=== PATIENT | male | born 1945 | race Caucasian/White ===

== ENCOUNTER 2023-10-14 14:25 | Inpatient (IN) | payer MEDICARE, SELFPAY ==
[2023-10-14] VITALS (13 sets, daily range): BP systolic 128–209; BP diastolic 66–98; BMI 27.2; BMI 26.9
[2023-10-14 08:48] LABS: % Basophils 0.7 % (0-2); % Eosinophils 4.7 % (0-6); % Immature Granulocytes 0.4 % (0-0.5); % Lymphocytes 12.6 % (20.5-51.1); % Monocytes 15.8 % (1.7-9.3); % Neutrophils 65.8 % (42.2-75.2); Absolute Basophils 0.1 10^3/uL (0-0.2); Absolute Eosinophils 0.4 10^3/uL (0-0.7); Absolute Monocytes 1.2 10^3/uL (0.1-0.6); Absolute Neutrophils 5.1 10^3/uL (1.4-6.5); Hematocrit 35.7 % (39.0-52.0); Mean Corp Hgb Conc. 33.6 g/dL (33.0-37.0); Mean Corpuscular Hgb 30.7 pg (27.0-31.0); Mean Corpuscular Volume 91.3 fL (80.0-94.0); Mean Platelet Volume 10.3 fL (7.4-10.4); Nucleated Red Blood Cells % 0 % (-); Platelet Count 199 10^3/uL (130-400); Red Blood Cell Count 3.91 10^6/uL (4.70-6.10); Red Cell Dist. Width 12.7 % (11.5-14.5); White Blood Cell Count 7.7 10^3/uL (4.8-10.8)
[2023-10-14 09:51] LABS: ALT (SGPT) 15 U/L (0-50); AST (SGOT) 24 U/L (17-59); Albumin 3.9 g/dl (3.5-5.0); Alkaline Phosphatase 96 U/L (38-126); Blood Urea Nitrogen 33 mg/dl (9-20); Carbon Dioxide 24 mmol/L (22-30); Chloride 107 mmol/L (98-107); Glucose 122 mg/dl (70-99); Lipase 105 U/L (23-300); Potassium 5.4 mmol/L (3.5-5.1); Sodium 135 mmol/L (135-145); Total Bilirubin 0.5 mg/dl (0.2-1.3); Total Protein 6.7 g/dl (6.3-8.2); eGFR 24.32
--- NOTE | 2023-10-14 10:35 | ED.GENMED ---
History of Present Illness
<Mojgan Solorzano, BRIMMING MACHINE OPERATOR - Last Filed: 10/16/23 20:17>
General
Chief Complaint: Abdominal Pain
Source: patient
Exam Limitations: none
Time Seen by Provider: 10/14/23 10:24
Nursing documentation reviewed up to this point in time: agreed with
Travel History
Have you had any contact with someone who has COVID-19?: No
Do you have any symptoms of coronavirus? Fever > 100 degrees, chills, cough, shortness of breath, sore throat, loss of taste or smell, muscle aches, or headache?: No
History of Present Illness
History of Present Illness:
78-year-old male with history of HTN, HLD, NIDDM, prostate cancer with a radical prostatectomy 2008 presents stating 5 days ago he developed sudden severe right upper quadrant pain which kept him in bed for a whole day. He thought it was due to his
being constipated so in the past 4 days he has taken suppositories twice, fleets enema once with no relief, then in the past 2 days he has taken Dulcolax orally twice and has had watery stools yesterday and today. He denies fever or chills. Denies
nausea or vomiting. He does say he feels distended but states at this moment he has no abdominal pain.
Past History
<Mojgan Solorzano, BRIMMING MACHINE OPERATOR - Last Filed: 10/16/23 20:17>
Past History
ED Past Medical History: Cancer (Prostate), HTN and NIDDM
ED Past Surgical History: None and Urological (radical prostatectomy 2008)
Social History
Tobacco: Non-smoker
Alcohol: Occasional
Personal:
Living: with family
Employment: Retired
Review of Systems
<Mojgan Solorzano, BRIMMING MACHINE OPERATOR - Last Filed: 10/16/23 20:17>
Review of Systems
Allergies reviewed?: Yes
All Other Systems: ROS reviewed and negative except as documented in HPI and ROS
Constitutional: Denies fever or chills
Respiratory: Denies trouble breathing
Cardiac: Denies chest pain
ABD/GI: Reports abdominal pain (Feels bloated), diarrhea (watery stools past 2 days.) and constipated; Denies nausea, vomiting, bloody stools, black stools or anorexia
: Denies dysuria, difficulty voiding or urgency
Musculoskeletal: Reports no symptoms
Skin: Reports no symptoms
Neurological: Reports no symptoms
Phy Exam
<Mojgan Solorzano, BRIMMING MACHINE OPERATOR - Last Filed: 10/16/23 20:17>
Physical Exam
Physical Exam:
GENERAL: No acute distress. A&Ox3.
CONSTITUTIONAL: Afebrile.
EYES: Clear, conjunctivae normal
ENMT: moist mucus membranes, Pharynx nl
RESPIRATORY: Regular respirations, nonlabored, lungs clear.
CARDIOVASCULAR: Regular rate and rhythm, no murmurs, no rubs.
GI: Soft, mildly rotund, nontender, normal BS
MUSCULOSKELETAL: Moves with ease. Well perfused.
SKIN: Warm, dry, pink
PSYCH: Normal mood and affect. Well kept, interactive and appropriate
NEUROLOGIC: Awake, alert and oriented. No focal neurological deficits
Course
<Mojgan Solorzano, BRIMMING MACHINE OPERATOR - Last Filed: 10/16/23 20:17>
Orders/Labs/Results
Orders:
Orders
10/14/23 Breakfast
NPO
Allow oral meds: Yes
Allow clear liquids: No
10/14/23 08:38
Complete Blood Count/With Diff Urgent
Comprehensive Metabolic Panel Urgent
Lipase Urgent
10/14/23 10:35
CT Abd/pel Without Iv Or Oral Urgent
Comment:
Reason For Exam: Right-sided abdominal pain, no BM for few days
10/14/23 10:52
0.9% Sodium Chloride 1000 ml [Nss] 1,000 ml IV BOLUS
10/14/23 11:28
Urinalysis Reflex To Culture Urgent
Date Specimen was Collected: 10/14/23
Time Specimen was Collected: 10:53
Urine Microscopic Reflex Cult Urgent
10/14/23 13:43
UROLOGY CONSULT Urgent
Consulting Provider: Sohail Razo Jr.
Was physician already notified: Yes
10/14/23 13:51
Sequential Compression Device [Pneumatic Compression Sleeves] As Directed
Type: Thigh high
Teds [Anti-embolism (JAILENE) Hose] As Directed
Type: Thigh high
10/14/23 13:52
DX Deep Vein Thrombosis Video Routine
10/14/23 14:01
HYDROmorphone [Dilaudid] 0.25 mg IV PACU-Q5MPRN PRN
Meperidine [Demerol] 12.5 mg IV PACU-Q5MPRN PRN
Morphine Sulfate 1 mg IV PACU-Q5MPRN PRN
Ondansetron Injectable [Zofran] 4 mg IV PACU-ONCEPRN PRN
Prochlorperazine [Compazine] 5 mg IV PACU-ONCEPRN PRN
Notify MD As Directed
Notify physician if: for SDS patients with known or suspected sleep obstructive sleep apnea, monitor in the
PACU.
Notify MD for any apneic/desaturation episodes
O2 Therapy [RESP] Urgent
Titrate/Wean O2 to maintain O2 sat greater than (%): 92
Special Instructions: -Provide supplemental oxygen to achieve O2 sat of 92% or greater.
-After 15 min, may wean O2 and discontinue if patient is able to maintain O2 sat of 92%
or greater during recovery period.
If patient is a discharge home, without oxygen therapy, notify anestheiologist if
unable to maintain O2 SAT of 92% or greater on room air for MD clearance.
10/14/23 14:16
HydrALAZINE [Apresoline] 10 mg IV NOW STA
10/14/23 14:19
Admit/Transfer Patient As Directed
Co-Sign Provider:
Level of Care: Inpatient admission
Assign to:: Medical/Surgical
Physician / Group: bebe
Diagnosis: ureteral stones
Reason for Hospitalization: ureteral stones
Expected length of stay greater than two midnights?: Yes
ELOS- Estimated Length of Stay in days: 3
I certify the patient meets the requirements for IP care: Yes
10/14/23 14:20
Code Status As Directed
Resuscitation Status: Full Code
10/14/23 16:00
CeFAZolin 2 GRAM [Ancef] 2 grams in 10 ml IV PRE PROCEDURE
10/14/23 16:30
Surgical Procedure As Directed
Surgical Procedure: right ureteroscopy
10/14/23 16:43
0.9% Sodium Chloride 1000 ml [Nss] 1,000 ml IV 80 mls/hr
Acetaminophen [Tylenol] 650 mg PO Q4HPRN PRN
Dextrose 50%-Water [Dextrose 50% Syringe] 12.5 grams IV [id number] PRN
Glucagon [GlucaGen] 1 mg IM PRN PRN
HydrALAZINE [Apresoline] 10 mg IV Q6HPRN PRN
Insulin Aspart Corrective Low [Novolog Flexpen-Low Resistance] See Protocol SC AC
10/14/23 16:43
Activity As Directed
Activity Level: As Tolerated
Bedside Glucose Monitoring As Directed
Frequency: AC&HS
Comment: Change to q6h if pt on TPN, tube feeding or not eating
Strain Urine As Directed
Vital Signs As Directed
Frequency: Per unit guidelines
10/14/23 20:00
Propranolol [Inderal] 20 mg PO BID
10/15/23 05:45
Basic Metabolic Panel IN AM
Complete Blood Count/No Diff IN AM
10/15/23 Breakfast
2000 calorie (17 carb) Diabetic
At Your Request: Full Participation
Does patient need a safe tray?: No
10/15/23 08:00
Atorvastatin [Lipitor] 10 mg PO DAILY
10/15/23 11:28
Urine Culture Urgent
DENISE Source: U
Specimen Description:
Date Specimen was Collected: 10/14/23
Time Specimen was Collected: 10:53
Abnormal Lab Results
10/14/23 10/14/23
08:38 11:28
RBC 3.91 L 10^6/uL
(4.70-6.10)
Hgb 12.0 L g/dL
(13.0-18.0)
Hct 35.7 L %
(39.0-52.0)
Absolute Lymphs (auto) 1.0 L 10^3/uL
(1.2-3.4)
Absolute Monos (auto) 1.2 H 10^3/uL
(0.1-0.6)
Lymphocytes % 12.6 L %
(20.5-51.1)
Monocytes % 15.8 H %
(1.7-9.3)
Potassium 5.4 H mmol/L
(3.5-5.1)
BUN 33 H mg/dl
(9-20)
Creatinine 2.6 H mg/dL
(0.7-1.3)
Glucose 122 H mg/dl
(70-99)
Ur Occult Blood Reflex 4+ A
(Negative)
Leukocyte Esterase Rfl Trace A
(Negative)
Urine RBC 30-40 A /HPF
(0-2)
Urine Bacteria (Reflex) Few A
(Negative)
10/14/23 08:38
10/14/23 08:38
Vital Signs
Initial and Last Documented VS:
Initial Vital Signs
Temp Pulse Resp BP Pulse Ox
98.3 F 55 18 207/98 99
10/14/23 08:26 10/14/23 08:26 10/14/23 08:26 10/14/23 08:26 10/14/23 08:26
Last Documented Vital Signs
Temp Pulse Resp BP Pulse Ox
97.7 F 82 18 163/89 96
10/15/23 07:00 10/15/23 08:23 10/15/23 07:00 10/15/23 08:23 10/15/23 08:43
<Jarek Chandler MD - Last Filed: 10/14/23 17:43>
Orders/Labs/Results
Orders:
Orders
10/14/23 Breakfast
NPO
Allow oral meds: Yes
Allow clear liquids: No
10/14/23 08:38
Complete Blood Count/With Diff Urgent
Comprehensive Metabolic Panel Urgent
Lipase Urgent
10/14/23 10:35
CT Abd/pel Without Iv Or Oral Urgent
Comment:
Reason For Exam: Right-sided abdominal pain, no BM for few days
10/14/23 10:52
0.9% Sodium Chloride 1000 ml [Nss] 1,000 ml IV BOLUS
10/14/23 11:28
Urinalysis Reflex To Culture Urgent
Date Specimen was Collected: 10/14/23
Time Specimen was Collected: 10:53
Urine Microscopic Reflex Cult Urgent
10/14/23 13:43
UROLOGY CONSULT Urgent
Consulting Provider: Sohail Razo Jr.
Was physician already notified: Yes
10/14/23 13:51
Sequential Compression Device [Pneumatic Compression Sleeves] As Directed
Type: Thigh high
Teds [Anti-embolism (JAILENE) Hose] As Directed
Type: Thigh high
10/14/23 13:52
DX Deep Vein Thrombosis Video Routine
10/14/23 14:01
HYDROmorphone [Dilaudid] 0.25 mg IV PACU-Q5MPRN PRN
Meperidine [Demerol] 12.5 mg IV PACU-Q5MPRN PRN
Morphine Sulfate 1 mg IV PACU-Q5MPRN PRN
Ondansetron Injectable [Zofran] 4 mg IV PACU-ONCEPRN PRN
Prochlorperazine [Compazine] 5 mg IV PACU-ONCEPRN PRN
Notify MD As Directed
Notify physician if: for SDS patients with known or suspected sleep obstructive sleep apnea, monitor in the
PACU.
Notify MD for any apneic/desaturation episodes
O2 Therapy [RESP] Urgent
Titrate/Wean O2 to maintain O2 sat greater than (%): 92
Special Instructions: -Provide supplemental oxygen to achieve O2 sat of 92% or greater.
-After 15 min, may wean O2 and discontinue if patient is able to maintain O2 sat of 92%
or greater during recovery period.
If patient is a discharge home, without oxygen therapy, notify anestheiologist if
unable to maintain O2 SAT of 92% or greater on room air for MD clearance.
10/14/23 14:16
HydrALAZINE [Apresoline] 10 mg IV NOW STA
10/14/23 14:19
Admit/Transfer Patient As Directed
Co-Sign Provider:
Level of Care: Inpatient admission
Assign to:: Medical/Surgical
Physician / Group: bebe
Diagnosis: ureteral stones
Reason for Hospitalization: ureteral stones
Expected length of stay greater than two midnights?: Yes
ELOS- Estimated Length of Stay in days: 3
I certify the patient meets the requirements for IP care: Yes
10/14/23 14:20
Code Status As Directed
Resuscitation Status: Full Code
10/14/23 16:00
CeFAZolin 2 GRAM [Ancef] 2 grams in 10 ml IV PRE PROCEDURE
10/14/23 16:30
Surgical Procedure As Directed
Surgical Procedure: right ureteroscopy
10/14/23 16:43
0.9% Sodium Chloride 1000 ml [Nss] 1,000 ml IV 80 mls/hr
Acetaminophen [Tylenol] 650 mg PO Q4HPRN PRN
Dextrose 50%-Water [Dextrose 50% Syringe] 12.5 grams IV [id number] PRN
Glucagon [GlucaGen] 1 mg IM PRN PRN
HydrALAZINE [Apresoline] 10 mg IV Q6HPRN PRN
Insulin Aspart Corrective Low [Novolog Flexpen-Low Resistance] See Protocol SC AC
10/14/23 16:43
Activity As Directed
Activity Level: As Tolerated
Bedside Glucose Monitoring As Directed
Frequency: AC&HS
Comment: Change to q6h if pt on TPN, tube feeding or not eating
Strain Urine As Directed
Vital Signs As Directed
Frequency: Per unit guidelines
10/14/23 20:00
Propranolol [Inderal] 20 mg PO BID
10/15/23 05:45
Basic Metabolic Panel IN AM
Complete Blood Count/No Diff IN AM
10/15/23 Breakfast
2000 calorie (17 carb) Diabetic
At Your Request: Full Participation
Does patient need a safe tray?: No
10/15/23 08:00
Atorvastatin [Lipitor] 10 mg PO DAILY
10/15/23 11:28
Urine Culture Urgent
DENISE Source: U
Specimen Description:
Date Specimen was Collected: 10/14/23
Time Specimen was Collected: 10:53
Abnormal Lab Results
10/14/23 10/14/23
08:38 11:28
RBC 3.91 L 10^6/uL
(4.70-6.10)
Hgb 12.0 L g/dL
(13.0-18.0)
Hct 35.7 L %
(39.0-52.0)
Absolute Lymphs (auto) 1.0 L 10^3/uL
(1.2-3.4)
Absolute Monos (auto) 1.2 H 10^3/uL
(0.1-0.6)
Lymphocytes % 12.6 L %
(20.5-51.1)
Monocytes % 15.8 H %
(1.7-9.3)
Potassium 5.4 H mmol/L
(3.5-5.1)
BUN 33 H mg/dl
(9-20)
Creatinine 2.6 H mg/dL
(0.7-1.3)
Glucose 122 H mg/dl
(70-99)
Ur Occult Blood Reflex 4+ A
(Negative)
Leukocyte Esterase Rfl Trace A
(Negative)
Urine RBC 30-40 A /HPF
(0-2)
Urine Bacteria (Reflex) Few A
(Negative)
10/14/23 08:38
10/14/23 08:38
Vital Signs
Initial and Last Documented VS:
Initial Vital Signs
Temp Pulse Resp BP Pulse Ox
98.3 F 55 18 207/98 99
10/14/23 08:26 10/14/23 08:26 10/14/23 08:26 10/14/23 08:26 10/14/23 08:26
Last Documented Vital Signs
Temp Pulse Resp BP Pulse Ox
97.7 F 82 18 163/89 96
10/15/23 07:00 10/15/23 08:23 10/15/23 07:00 10/15/23 08:23 10/15/23 08:43
<Mojgan Solorzano BRIMMING MACHINE OPERATOR - Last Filed: 10/16/23 20:17>
MDM/Problems Addressed
Differential Diagnosis Includes:
constipation, bowel obstruction, kidney stone
MDM/Problems Addressed:
78-year-old male with history of HTN, HLD, NIDDM, prostate cancer with a radical prostatectomy 2008 presents stating 5 days ago he developed sudden severe right upper quadrant pain which kept him in bed for a whole day. He thought it was due to his
being constipated so in the past 4 days he has taken suppositories twice, fleets enema once with no relief, then in the past 2 days he has taken Dulcolax orally twice and has had watery stools yesterday and today. He denies fever or chills. Denies
nausea or vomiting. He does say he feels distended but states at this moment he has no abdominal pain.
10/14/2023 1038 AM
Abdomen benign at this time
CBC with no clinically significant abnormality
CMP: BUN/creat 23/2.6, GFR 24.32 Worsening since 09/15/2023 when it was normal, Prior to that /1.4 GFR 48.9 02/2023
10/14/2023 1205 PM
CAT scan result radiology report read: IMPRESSION:
1). There is a 4 mm partially obstructing calculus at the intramural portion of the right ureterovesical junction associated with moderate right hydronephrosis, moderate right hydroureter and moderate right perinephric edema.
2). There is a 1 mm nonobstructing calculus in the interpolar right kidney
3). Diverticuli are present in the colon with no CT evidence of diverticulitis
4). Multilevel degenerative disc disease
Patient remains comfortable, pain-free
10/14/2023 1338 PM
Case discussed with Dr. Chandler who consulted urology Dr. Razo who requests admit to Hospitalist and he will be in later to remove the stone.
Pt updated and ok with plan.
<Mojgan Solorzano NP - Last Filed: 10/16/23 20:17>
*Critical Care Note
Total Time (30-74mins, 75-104mins- exclusive of procedures): Not Applicable
ED Attending Note
<Mojgan Solorzano BRIMMING MACHINE OPERATOR - Last Filed: 10/16/23 20:17>
-
Portions of this chart may have been created with voice recognition software.� Occasional wrong word or��sound alike� substitutions may have occurred due to the inherent limitations of voice recognition software.
<Jarek Chandler MD - Last Filed: 10/14/23 17:43>
ED Attending Note
I performed the substantive portion of visit, reviewed & personally made and approve the management plan that is documented in note by myself or CRISTOBAL.: Yes
ED Attending Note:
Pt found to be in ARF with obstructing renal stone. Discussed with (urology) - recommends hospitalist admission for further workup, as CT findings may not fully explain degree of renal dysfunction. However, plan to proceed to OR for stone
extraction later today.
Discharge Plan
Departure
Patient Disposition: Admit
Date of Disposition: 10/14/23
Time of Disposition: 13:41
Admit to: Med/Surg
Presentation/result/management discussed w/ accepting MD/DO: Hospitalist
Condition: Fair
Discharge Problem:
Acute renal failure, Calculus of ureterovesical junction (UVJ)
Interventions
Interventions:
*Risk Screen - Suicide Last Done: 10/14/23 18:11
*General Assessment Last Done: 10/14/23 08:26
*Neglect/Abuse Screening Last Done: 10/14/23 08:26
ED- Fall Risk Assessment Last Done: 10/14/23 14:14
*ED COVID-19 Vaccine History Last Done: 10/14/23 08:26
*Nursing Disposition Last Done: 10/14/23 15:49
[facility] Assessment Last Done: 10/14/23 14:14
Discharge Date and Time
Discharge Date/Time: 10/14/23 15:49
[2023-10-14 11:48] LABS: Urine Albumin Trace (Neg - Trace); Urine Bilirubin Negative (Negative); Urine Character Clear (Clear); Urine Color Yellow; Urine Glucose Negative (Negative); Urine Ketone Negative (Negative); Urine Leukocyte Trace (Negative); Urine Nitrite Negative (Negative); Urine Occult Blood 4+ (Negative); Urine Urobilinogen Negative (Neg - 1+)
[2023-10-14 12:17] LABS: Urine Bacteria Few (Negative); Urine White Cell 0-2 /HPF (0-5)
[2023-10-14 12:18] LABS: Urine Red Blood Cell 30-40 /HPF (0-2)
[2023-10-14] MEDS: NSS 1000 IV ×2 (12:20→17:18)
--- NOTE | 2023-10-14 13:48 | HPS.HSE ---
Addendum entered and electronically signed by Leah Joshi MD 10/14/23 15:17:
I saw and examined the patient.
The PARTS COUNTER REPRESENTATIVE's note was reviewed and I agree with the note.
Comment:
This is a 78-year-old male, PMH HTN, HLD, NIDDM, prostate cancer with a radical prostatectomy 2008; presented with right suprapubic tenderness.
A/P:
# R suprapubic tenderness likely due to 4 mm obstructing renal calculus
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
CT abdomen pelvis noted 4 mm partially obstructing calculus at the intramural portion of the right ureterovesical junction associated with moderate right hydronephrosis, moderate right hydroureter and moderate right perinephric edema. There is a 1
mm nonobstructing calculus in the interpolar right kidney.
Urology consulted for stone extraction
creatinine 2.6 from baseline 1.3, cont to monitor
cont IVF
# Mild hyperkalemia
K5.4
Monitor
# Essential hypertension
Start IV hydralazine PRN for now
Cont IGNITION MECHANIC Propanol
# Essential tremors
Cont IGNITION MECHANIC Propanol
# Type 2 diabetes
Hold metformin
Sliding scale
CHO diet starting tomorrow
DVT prophylaxis: SCD
CODE STATUS: Full code
Original Note:
Family Physician
-
Family Physician: Fransisco Rankin
Chief Complaint
-
right lower quadrant pain
History of Present Illness
78-year-old male with history of HTN, HLD, NIDDM, prostate cancer with a radical prostatectomy 2008 presents stating 5 days ago he developed sudden severe right lower quadrant pain which kept him in bed for a whole day the first day. he took aleve
which took his pain away. since then he was getting intermittent pain at night. denied fever chills, dysuria or hematuria. He thought it was due to his being constipated, he took dulcolax, which helped him to move the bowels.� Denied headache,
dizziness, syncopal episode. Patient denied chest pain or short of breath.
CT with obstructive stones. Admitting for further management
Medical History
Past Medical History
Past Medical History: Reports Other
Additional Past Medical History:
Essential tremors
Hypertension
Hyperlipidemia
Type 2 diabetes
Past Surgical History: Reports Other
Additional Past Surgical History:
Prostatectomy
Mastoidectomy
Social History
Tobacco: Non-smoker
Alcohol: Occasional
Drug: None
Personal:
Living: With Family
Family History
Family History: Not pertinent
Allergies / Home Medications
Allergies reflects when Allergies were last updated in [facility].
Home Medications with original date entered in [facility]
Allergy/Medication List:
Allergies
Allergy/AdvReac Type Severity Reaction Status Date / Time
No Known Allergies Allergy Verified 10/14/23 08:26
Home Medications
Lactobacillus acidophilus 1 tab PO DAILY 10/14/23
aspirin 81 mg tablet 81 mg PO DAILY 10/14/23
metformin 500 mg tablet 500 mg PO DAILY 10/14/23
propranolol 20 mg tablet 20 mg PO BID 10/14/23
simvastatin 20 mg tablet 20 mg PO DAILY 10/14/23
Review of Systems
-
Constitutional: Reports No Symptoms
EENT: Reports No Symptoms
Respiratory: Reports No Symptoms
Cardiac: Reports No Symptoms
Abdomen/GI: Reports Other (Right lower quadrant pain)
: Reports No Symptoms
Musculoskeletal: Reports No Symptoms
Skin: Reports No Symptoms
Neurological: Reports No Symptoms
Endocrine: Reports No Symptoms
Hematologic/Lymphatic: Reports No Symptoms
Psych: Reports No Symptoms
Physical Exam
Vital Signs
Vital Signs
Temp Pulse Resp BP Pulse Ox
97.9 F 58 14 198/81 98
10/14/23 11:28 10/14/23 12:00 10/14/23 12:00 10/14/23 12:00 10/14/23 12:00
Physical Exam
General: Well Developed, Well Nourished and No Apparent Distress
HEENT: NormoCephalic, Moist mucous membranes and Atraumatic
Respiratory: Clear
Cardiac: S1/S2 and Regular Rhythm; No Murmur or Rub
GI: Soft, Non Tender, Non Distended and Normal Bowel Sounds; No Organomegaly
Rectal: Deferred by Provider
Musculoskeletal: No Clubbing, No Cyanosis and No Edema
Skin: No Rash
Neuro: AO x 3 and Nonfocal/grossly intact
Psych: Calm
Laboratory Results
-
10/14/23 08:38
10/14/23 08:38
Laboratory Results
Total Bilirubin 0.5 mg/dl (0.2-1.3) 10/14/23 08:38
AST 24 U/L (17-59) 10/14/23 08:38
ALT 15 U/L (0-50) 10/14/23 08:38
Alkaline Phosphatase 96 U/L (38-126) 10/14/23 08:38
Lipase 105 U/L (23-300) 10/14/23 08:38
Data Reviewed
-
CT Scan: Report Reviewed by me
Lab Data: Labs Reviewed by me
Impression/Plan
-
# 4 mm obstructing calculus
-CT abdomen pelvis with impression of There is a 4 mm partially obstructing calculus at the intramural portion of the right ureterovesical junction associated with moderate right hydronephrosis, moderate right hydroureter and moderate right
perinephric edema. There is a 1 mm nonobstructing calculus in the interpolar right kidney. Diverticuli are present in the colon with no CT evidence of diverticulitis. Multilevel degenerative disc disease
-Urology consulted for stone extraction
-Continue to keep patient n.p.o.
-Strain urine
-Fluids continued
# Acute kidney failure/hyperkalemia likley from obstruction
-K5.4, creatinine 2.6
-fluids continued
# Accelerated hypertension likely from pain/history of hypertension
-Hydralazine 10 mg IV now
-Hydralazine 10 mg systolic BP greater than 160
-Propanol continued
# Essential tremors
-Propanol continued
# Type 2 diabetes
-Hold metformin
-Sliding scale
-Daily BGM
-CHO diet from tomorrow
# DVT prophylaxis
-SCD
# CODE STATUS
-Full code
--- NOTE | 2023-10-14 14:02 | CONS.URO ---
Consultation
-
Date/Time Consultation Performed: 10/14/23 1350
Performing Provider: Lefty
Reason for Consultation: right ureteral stone; PATRICIA
Medical History
History of Present Illness
adult male suffered abrupt onset of right upper quadrant pain ~ 5 days ago; patient self-diagnosed 'severe constipation' so in the past 4 days he has taken suppositories twice, fleets enema once with no relief. The focus of pain migrated to right�
lower quadrant abdominal pain for which he presented to ED
mo fevers/chills/ sweats
no antecedent stone hx
DEJA since prostatectomy in 2008
Past Medical History
Past Medical History: Other (HTN and NIDDM)
Past Surgical History: Urological (radical robotic prostatectomy at [facility] in 2008)
Allergies/Home Medications
Allergies
Allergy/AdvReac Type Severity Reaction Status Date / Time
No Known Allergies Allergy Verified 10/14/23 08:26
Home Medications
Medication Instructions Recorded Confirmed Type
cephalexin 500 mg capsule 500 mg PO BID #19 caps 07/08/19 Rx
Review of Systems
-
Constitutional: Reports No Symptoms
Respiratory: Reports No Symptoms
Cardiac: Reports No Symptoms
Abdomen/GI: Reports Abdominal Pain and Diarrhea (since suppositories and enema)
: Reports Incontinence (DEJA)
Skin: Reports No Symptoms
Neurological: Reports No Symptoms
Endocrine: Reports No Symptoms
Hematologic/Lymphatic: Reports No Symptoms
Psych: Reports No Symptoms
Physical Exam
Vital Signs
Vital Signs
Temp Pulse Resp BP Pulse Ox
97.9 F 56 13 182/82 97
10/14/23 11:28 10/14/23 13:00 10/14/23 13:00 10/14/23 13:00 10/14/23 13:00
Lab / Testing Results
Laboratory Results
10/14/23 08:38
10/14/23 08:38
Assessment / Plan
-
4-5 mm right UVJ stone with hydroureteronephrosis
Azotemia -- more likely related to self-treatment of 'constipation' which has resulted in diarrhea and probably hypohydration
Plan: posted to OR for right ureteroscopy. stone removal and stenting today; consent signed
Data Reviewed
-
CT Scan: Image personally visualized and interpreted (4-5 mm right UVJ stone with hydroureteronephrosis; bladder anatomy is altered c/w prior radical prostatectomy)
Lab Data: Labs Reviewed
Old Records: Reviewed
[2023-10-14] MEDS: APRESOLINE 10 MG IV (14:25)
[2023-10-14] MEDS: ANCEF 10 IV (16:19)
--- NOTE | 2023-10-14 16:38 | W.IMMPOSTOP ---
Surgical Immed Post Op Note
-
Primary Surgeon:
yfn
Assisting Surgeon:
Pre-op Diagnosis:
right ureteral stone
Post-op Diagnosis:
same
Procedure Performed:
right ureteroscopy/stone extraction and stent
Anesthesia Type:
gen
Specimen / Cultures:
stone
Estimated Blood Loss:
1cc
Complications:
none
Operative Findings:
stone removed
stent placed
there was some cloudy urine expressed upon wire placement- will keep on ancef overnight
recheck cr level in am
[2023-10-14 17:03] LABS: Glucose - Point of Care 104 mg/dl (70-99)
[2023-10-14] MEDS: NOVOLOG FLEXPEN-LOW RESISTANCE SC (18:09)
[2023-10-14] MEDS: INDERAL 20 MG PO (19:59)
[2023-10-14 22:20] LABS: Glucose - Point of Care 254 mg/dl (70-99)
[2023-10-14] MEDS: Pyridium 100 MG PO (23:56)
[2023-10-14] MEDS: ANCEF 5 IV (23:56)
[2023-10-15] MEDS: NSS 1000 IV (06:32)
[2023-10-15 07:00] VITALS: BP 163/89
[2023-10-15 07:13] LABS: Hematocrit 35.3 % (39.0-52.0); Hemoglobin 12.1 g/dL (13.0-18.0); Mean Corp Hgb Conc. 34.3 g/dL (33.0-37.0); Mean Corpuscular Hgb 30.7 pg (27.0-31.0); Mean Corpuscular Volume 89.6 fL (80.0-94.0); Mean Platelet Volume 10.7 fL (7.4-10.4); Platelet Count 237 10^3/uL (130-400); Red Blood Cell Count 3.94 10^6/uL (4.70-6.10); Red Cell Dist. Width 12.6 % (11.5-14.5); White Blood Cell Count 7.2 10^3/uL (4.8-10.8)
--- NOTE | 2023-10-15 07:13 | W.PN.URO.CBU ---
Today's Communication / Plan
-
check cr level
eventual outpt f/u for stent removal
Assessment / Plan
-
s/p stone extraction and stent
elevated cr level
reviewed operative course with patient
plan to remove stent on thursday- my office will call to arrange
are awaiting cr level- if improved- ok for discharge- but have explained to patient importance of proper care/attention to this and if renal function not improved- he may petros to remain hospitlaized- HE SAYS HE WILL LIKELY LEAVE TODAY EVEN IF AGAINST
MEDICAL ADVICE
will dicsus with med team
Diagnosis
-
Date of Service: October 15, 2023
-
Patient Diagnosis:
stone
ARF
Post Op Day:
right ureteroscopy/laser litho and stent
Subjective
-
pt without complaint
no trouble urinating
cr level pending
Objective
-
Vital Signs
Temp Pulse Resp BP Pulse Ox
97.7 F 71 20 165/91 97
10/14/23 23:00 10/14/23 23:00 10/14/23 23:00 10/14/23 23:00 10/14/23 23:00
Intake and Output
10/14/23 10/15/23 10/16/23
06:59 06:59 06:59
Intake Total 340 / 340
Output Total 3150 / 3150
Balance -2810 / -2810
Intake:
Oral fluids 240 / 240
IV fluids (Total) 100 / 100
Normosol 100 / 100
Output:
Urine, Voided 3150 / 3150
Physical Exam
-
General - well developed, well nourished, no acute distress
[2023-10-15 07:32] LABS: Glucose - Point of Care 161 mg/dl (70-99)
[2023-10-15 07:38] LABS: Blood Urea Nitrogen 25 mg/dl (9-20); Calcium 8.8 mg/dl (8.4-10.2); Carbon Dioxide 23 mmol/L (22-30); Chloride 103 mmol/L (98-107); Estimated Creatinine Clearance 39 ml/min; Glucose 175 mg/dl (70-99); Potassium 4.7 mmol/L (3.5-5.1); Sodium 135 mmol/L (135-145); eGFR 43.56
[2023-10-15] MEDS: INDERAL 20 MG PO (08:23)
[2023-10-15] MEDS: Pyridium 100 MG PO (08:23)
[2023-10-15] MEDS: ASPIR LOW (ENTERIC COATED) 81 MG PO (08:23)
[2023-10-15] MEDS: LIPITOR 10 MG PO (08:24)
[2023-10-15] MEDS: ANCEF 5 IV (08:24)
[2023-10-15] MEDS: NOVOLOG FLEXPEN-LOW RESISTANCE 1 UNITS SC ×2 (08:36→12:38)
--- NOTE | 2023-10-15 10:49 | W.PN.HOSP.TC ---
Addendum entered and electronically signed by Leah Joshi MD 10/15/23 14:21:
total DC time 35 min
Original Note:
Today's Communication/Plan
-
DC home
Assessment / Plan
Assessment / Plan
78-year-old male, PMH HTN, HLD, NIDDM, prostate cancer with a radical prostatectomy 2008; presented with right suprapubic tenderness.
A/P:
# R suprapubic tenderness due to 4 mm obstructing renal calculus
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
CT abdomen pelvis noted 4 mm partially obstructing calculus at the intramural portion of the right ureterovesical junction associated with moderate right hydronephrosis, moderate right hydroureter and moderate right perinephric edema. There is a 1
mm nonobstructing calculus in the interpolar right kidney.
s/p urgent Cystoscopy, right ureteroscopy, and extraction of stone, and stent placement on admission 10/14
Pt to follow with Uro outpt for stent removal
creatinine 2.6 -> 1.6; from baseline 1.3, cont to monitor BMP outpt with PCP
observe off IVF
Pending urine Cx, cont empiric Rx with Ancef, will DC on Keflex x7 days
Follow urine Cx results with PCP outpt (pt has been informed)
# Mild hyperkalemia, resolved
# Essential hypertension
IV hydralazine PRN
Cont [employer] Propanol
Add low dose Norvasc 2.5 mg daily
# Essential tremors
Cont [employer] Propanol
# Type 2 diabetes
Hold metformin until further directed by PCP due to PATRICIA status
Sliding scale
CHO diet starting tomorrow
DVT prophylaxis: SCD
CODE STATUS: Full code
DW Uro Dr Day
Anticipated Discharge: Today
Subjective/Interval History
-
Date of Service: October 15, 2023
Objective Data
-
Labs:
Laboratory Results
10/15/23
05:45
WBC 7.2
Hgb 12.1 L
Hct 35.3 L
Plt Count 237
Sodium 135
Potassium 4.7
Chloride 103
Carbon Dioxide 23
BUN 25 H
Creatinine 1.6 H
Glucose 175 H
Calcium 8.8
Vital Signs:
Vital Signs
Temp Pulse Resp BP Pulse Ox
36.5 C 82 18 163/89 96
10/15/23 07:00 10/15/23 08:23 10/15/23 07:00 10/15/23 08:23 10/15/23 07:00
I&O
10/14/23 10/15/23 10/16/23
06:59 06:59 06:59
Intake Total 340 / 340
Output Total 3150 / 3150
Balance -2810 / -2810
Review of Systems
-
All other systems: Reviewed and negative
Physical Exam
-
General: Well Developed, Well Nourished, No Apparent Distress, Comfortable and Conversant; Negative Respiratory Distress
HEENT: Normocephalic, Atraumatic, Nose Appears Normal and Ears Appear Normal; Negative Oxygen
Respiratory: Clear to Auscultation and Non Labored Respirations; Negative Accessory Resp Muscle Use
Cardiac: Regular Rhythm and S1/S2
GI: Soft, Nontender, Nondistended and Normal Bowel Sounds
Skin: Warm and Dry
Neuro: Awake, Alert, Oriented and AO x 3
Psych: Calm and Intact Judgement/Insight
Data Reviewed
-
Labs: Labs Reviewed by me
[2023-10-15 12:29] LABS: Glucose - Point of Care 158 mg/dl (70-99)
--- NOTE | 2023-10-15 14:03 | W.DCSUMMARY ---
Discharge Summary
Discharge Data
Date of Admission: 10/14/23
Date of Discharge: 10/15/23
-
Pending Results: No
Hospital Course
Principal Diagnosis:
Right suprapubic tenderness due to 4 mm obstructing renal calculus, with associated moderate right hydronephrosis, moderate right hydroureter and moderate right perinephric edema.
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
Chronic Diagnoses:�
Essential hypertension, added low dose Norvasc 2.5 mg daily this admission
Hyperlipidemia
Essential tremors
Ymw-bafobxa-vntbozwdi diabetes. Hold prior to admission metformin for now until further directed by his PCP due to PATRICIA status.
Prostate cancer with a radical prostatectomy 2008
Consultations:�
Urology
Procedures:�
Urgent cystoscopy, right ureteroscopy, and extraction of stone with stent placement on admission 10/14/23
Clinical course:�
This is a 78-year-old male, with past medical history as stated above, who presented with right suprapubic tenderness.
Problem 1:
R suprapubic tenderness due to 4 mm obstructing renal calculus.
This was associated with obstructive PATRICIA.
The patient underwent urgent cystoscopy, right ureteroscopy, and extraction of stone with stent placement on admission 10/14/23.
He can follow-up with urology outpatient for stent removal.
His serum creatinine down trended from 2.6 to 1.6 (baseline at around 1.3).
He can monitor his BMP outpatient with result to his PCP.
His urine culture was still pending at the time of discharge, and he was discharged with empiric Keflex for 7 days.
The patient has been informed to follow-up his urine culture result with his PCP.
Problem 2:
Essential hypertension.
In addition to continuing his prior to admission propranolol, Norvasc 2.5 mg was added this admission for better BP control.
Further dosage adjustment per his PCP.
As for the rest of his medical problems, they were stable during his hospital stay.
Discharge Plan
-
Patient Disposition: Home (Routine Discharge)
Discharge Diagnosis/Procedures: Obstructive uropathy with acute renal insufficiency due to right ureteral stone status post urgent Cystoscopy, right ureteroscopy, and extraction of stone, and stent placement on 10/14
Condition: Fair
Diet: As tolerated
Activity: As tolerated
Driving Restrictions: As prior to admission
Bathing Restrictions: OK to Shower
Blood Work: BMP within 1 week, result to your PCP
Wound Care: expect blood in urine, urinary frequency and urgency, and some discomfort with urination
Activity Restrictions/Additional Instructions:
You were started with Norvasc 2.5 mg daily for better BP control, continue until further directed by your PCP.
Continue Keflex 500 mg twice daily for 7 days
Referrals:
Fransisco Rankin I., [Family Provider] - in less than 1 week
Sohail Coulter Jr., MD [Active] - (dr coulter's office will call to schedule stent removal on thursday)
Prescriptions:
New
cephalexin 500 mg capsule
500 mg PO BID 7 Days Qty: 14 0RF
amlodipine [Norvasc] 2.5 mg tablet
2.5 mg PO DAILY Qty: 30 0RF
Continued
simvastatin 20 mg Tablet
20 mg PO DAILY
propranolol 20 mg Tablet
20 mg PO BID
aspirin 81 mg Tablet,Delayed Release (Dr/Ec)
81 mg PO DAILY
naproxen sodium [Aleve] 220 mg Tablet
220 mg PO BID PRN (Reason: mild pain)
bisacodyl [Dulcolax (bisacodyl)] 5 mg Tablet,Delayed Release (Dr/Ec)
15 mg PO DAILYPRN PRN (Reason: constipation)
Acidophilus Capsule
1 cap PO DAILY
[place]atian Denise Powder
1 tsp PO HS
Patient Comments:
10/14/2023, taken for constipation.
Held
metformin 500 mg Tablet
500 mg PO DAILY
Hold Instructions: Resume on 10/21/23. until further directed by your PCP
Discharge Orders:
Discharge Patient (As Directed); Ordered 10/15/23
Ordered By: Leah Joshi
--- NOTE | 2023-10-15 15:43 | CM ---
manager critical care reviewed patient's chart and patient lives with spouse in a multilevel home, patient is independent with adl's and ambulation, no dme, patient is for discharge to home today no needs.
Plan; Home no needs today.
[2023-10-20 11:18] LABS: Stone Analysis Mass 42 mg
== END 2023-10-15 14:47 | disposition home or self-care (01) | DRG 661 ==
LOC: 4 WEST ACU 14:25
PROVIDERS: Emergency Medicine; Registered Nurse; Specialist; ADMITTING PHYSICIAN Internal Medicine; EMERGENCY PHYSICIAN Emergency Medicine; FAMILY PHYSICIAN Internal Medicine; OTHER PHYSICIAN Specialist
PROC: 0T768DZ Dilation of Right Ureter with Intraluminal Device, Via Natural or Artificial Opening Endoscopic (ICD-10-PCS; 2023-10-14)
PROC: 0TC68ZZ Extirpation of Matter from Right Ureter, Via Natural or Artificial Opening Endoscopic (ICD-10-PCS; 2023-10-14)
DX: N13.2 Hydronephrosis with renal and ureteral calculous obstruction (principal); Z85.46 Personal history of malignant neoplasm of prostate; N17.9 Acute kidney failure, unspecified; N18.30 Chronic kidney disease, stage 3 unspecified; E11.22 Type 2 diabetes mellitus with diabetic chronic kidney disease; I12.9 Hypertensive chronic kidney disease with stage 1 through stage 4 chronic kidney disease, or unspecified chronic kidney disease; Z90.79 Acquired absence of other genital organ(s); E87.5 Hyperkalemia; G25.0 Essential tremor; E78.5 Hyperlipidemia, unspecified; Z79.82 Long term (current) use of aspirin
CPT/HCPCS: 74018; 74176; 76000; 80048; 80053; 81003; 81015; 82365; 82962; 83690; 85025; 85027; 87086; 96360; 96361; 99285; C2617

== ENCOUNTER → 2023-10-16 11:00 | Outpatient (REF) | payer MEDICARE, SELFPAY ==
[2023-10-16 13:19] LABS: Blood Urea Nitrogen 24 mg/dl (9-20); Carbon Dioxide 29 mmol/L (22-30); Chloride 103 mmol/L (98-107); Glucose 107 mg/dl (70-99); Sodium 136 mmol/L (135-145); eGFR 47.06
[2023-10-16 13:28] LABS: Potassium 4.7 mmol/L (3.5-5.1)
== END ==
LOC: HWLAB 11:00
PROVIDERS: ATTENDING PHYSICIAN Internal Medicine; FAMILY PHYSICIAN Internal Medicine
DX: N13.9 Obstructive and reflux uropathy, unspecified (principal)
CPT/HCPCS: 36415; 80048

== ENCOUNTER → 2024-01-12 10:36 | Outpatient (REF) | payer MEDICARE, SELFPAY ==
[2024-01-12 12:15] LABS: ALT (SGPT) 24 U/L (0-50); AST (SGOT) 33 U/L (17-59); Albumin 4.7 g/dl (3.5-5.0); Alkaline Phosphatase 62 U/L (38-126); Blood Urea Nitrogen 23 mg/dl (9-20); Calcium 9.8 mg/dl (8.4-10.2); Carbon Dioxide 28 mmol/L (22-30); Chloride 102 mmol/L (98-107); Glucose 106 mg/dl (70-99); HDL Cholesterol 67 mg/dl; LDL Cholesterol, Calculated 105 mg/dl; Sodium 134 mmol/L (135-145); Total Bilirubin 0.6 mg/dl (0.2-1.3); Total Cholesterol 191 mg/dl (50-199); Total Protein 7.7 g/dl (6.3-8.2); Triglyceride 99 mg/dl (10-149); Very Low Density Lipoprotein 19 mg/dl (0-30); eGFR 55.88
[2024-01-12 14:07] LABS: Glycohemoglobin (HgbA1c) 6.5 % (4.0-5.6)
== END ==
LOC: HWLAB 10:36
PROVIDERS: ATTENDING PHYSICIAN Internal Medicine
DX: E11.9 Type 2 diabetes mellitus without complications (principal); E78.01 Familial hypercholesterolemia; E11.21 Type 2 diabetes mellitus with diabetic nephropathy
CPT/HCPCS: 36415; 80053; 80061; 83036

== ENCOUNTER → 2024-04-05 08:01 | Outpatient (REF) | payer MEDICARE, SELFPAY ==
[2024-04-05 09:53] LABS: ALT (SGPT) 21 U/L (0-50); AST (SGOT) 28 U/L (17-59); Albumin 4.9 g/dl (3.5-5.0); Alkaline Phosphatase 56 U/L (38-126); Blood Urea Nitrogen 24 mg/dl (9-20); Calcium 10.1 mg/dl (8.4-10.2); Carbon Dioxide 30 mmol/L (22-30); Chloride 100 mmol/L (98-107); Glucose 124 mg/dl (70-99); HDL Cholesterol 67 mg/dl; LDL Cholesterol, Calculated 100 mg/dl; Sodium 137 mmol/L (135-145); Total Bilirubin 0.7 mg/dl (0.2-1.3); Total Cholesterol 186 mg/dl (50-199); Total Protein 7.6 g/dl (6.3-8.2); Triglyceride 98 mg/dl (10-149); Very Low Density Lipoprotein 19 mg/dl (0-30); eGFR 50.81
[2024-04-05 11:33] LABS: Glycohemoglobin (HgbA1c) 6.7 % (4.0-5.6)
== END ==
LOC: HWLAB 08:01
PROVIDERS: ATTENDING PHYSICIAN Internal Medicine
DX: E11.22 Type 2 diabetes mellitus with diabetic chronic kidney disease (principal)
CPT/HCPCS: 36415; 80053; 80061; 83036

== ENCOUNTER → 2024-07-19 06:32 | Outpatient (REF) | payer MEDICARE, SELFPAY ==
[2024-07-19 10:00] LABS: Glycohemoglobin (HgbA1c) 6.5 % (4.0-5.6)
[2024-07-19 11:39] LABS: ALT (SGPT) 22 U/L (0-50); AST (SGOT) 30 U/L (17-59); Alkaline Phosphatase 55 U/L (38-126); Blood Urea Nitrogen 32 mg/dl (9-20); Calcium 9.9 mg/dl (8.4-10.2); Carbon Dioxide 29 mmol/L (22-30); Chloride 100 mmol/L (98-107); Glucose 137 mg/dl (70-99); HDL Cholesterol 76 mg/dl; LDL Cholesterol, Calculated 123 mg/dl; Potassium 4.8 mmol/L (3.5-5.1); Sodium 140 mmol/L (135-145); Total Bilirubin 0.5 mg/dl (0.2-1.3); Total Cholesterol 218 mg/dl (50-199); Total Protein 7.8 g/dl (6.3-8.2); Triglyceride 98 mg/dl (10-149); Very Low Density Lipoprotein 19 mg/dl (0-30); eGFR 50.81
== END ==
LOC: HWLAB 06:32
PROVIDERS: ATTENDING PHYSICIAN Internal Medicine
DX: E11.22 Type 2 diabetes mellitus with diabetic chronic kidney disease (principal)
CPT/HCPCS: 36415; 80053; 80061; 83036